=== PATIENT | female | born 1990 | race American Indian/Alaskan Native ===

== ENCOUNTER 2019-05-02 08:38 | Outpatient (CLI) | payer MEDICAID ==
[2019-05-02] MEDS ORDERED: LACTATED RINGERS 1,000 ML ONE (09:07)
[2019-05-02] MEDS ORDERED: LACTATED RINGERS 1,000 ML IV SCH (10:00)
[2019-05-02 10:24] LABS: Bacteria,Urine 3+ /HPF (Negative); Bilirubin,Urine NEG (Negative); Blood,Urine NEG (Negative); Color,Urine Yellow (Yellow); Mucus,Urine FEW /HPF; Urobilinogen,Urine < 2.0 mg/dL (<2.0)
[2019-05-02] MEDS ORDERED: ROCEPHIN/NS 1 GM/50 ML 1 GM/50 ML BAG IV ONE (10:50)
[2019-05-02 10:51] VITALS: BP 122/73
== END 2019-05-02 12:08 | disposition home or self-care (01) ==
LOC: TRG 08:38
PROVIDERS: ATTEND Obstetrics & Gynecology
DX: O26.893 Other specified pregnancy related conditions, third trimester (principal); R10.9 Unspecified abdominal pain; Z3A.36 36 weeks gestation of pregnancy
CPT/HCPCS: 81001; 96361; 96365; J0696; J7120; 96360

== ENCOUNTER 2019-05-20 20:34 | Inpatient (IN) | payer MEDICAID ==
[2019-05-20] MEDS ORDERED: MINERAL OIL PO PRN (23:13)
[2019-05-20] MEDS ORDERED: BRETHINE SUB-Q PRN (23:13)
[2019-05-20] MEDS ORDERED: XYLOCAINE 2% INFILTRATI ONE (23:13)
[2019-05-20] MEDS ORDERED: SUBLIMAZE IV PRN (23:13)
[2019-05-20] MEDS ORDERED: BRETHINE IVP PRN (23:13)
[2019-05-20] MEDS ORDERED: LACTATED RINGERS 1,000 ML IV SCH (23:45)
[2019-05-20] MEDS ORDERED: PITOCin/NS 20 UNIT/1000ML DRIP 20 UNITS/1,000 ML BAG IV SCH (23:45)
[2019-05-20] MEDS ORDERED: PITOCin/NS 30 UNIT/500ML 30 UNITS/500 ML BAG IV SCH (23:45)
[2019-05-20 23:46] LABS: Basophils # (Auto) 0.1 K/mm3 (0.0-0.1); Basophils % (Auto) 0.7 % (0.0-1.8); Eosinophils % (Auto) 0.5 % (0.0-4.3); Hematocrit 35.6 % (30.3-42.9); Hemoglobin 11.3 gm/dl (10.1-14.3); Lymphocytes # (Auto) 1.6 K/mm3 (1.2-5.4); Lymphocytes % (Auto) 18.5 % (13.4-35.0); Mean Corpuscular HGB Conc 32 % (30-34); Mean Corpuscular Volume 85 fl (79-97); Monocytes # (Auto) 0.7 K/mm3 (0.0-0.8); Monocytes % (Auto) 8.2 % (0.0-7.3); Platelet Count 264 K/mm3 (140-440); Red Blood Count 4.21 M/mm3 (3.65-5.03); Red Cell Distribution Width 16.2 % (13.2-15.2)
--- NOTE | 2019-05-21 09:06 | History and Physical Report ---
History of Present Illness Date of examination: 05/21/19 Date of admission: 05/20/19 20:34 Chief complaint: Here for induction History of present illness: The patient is a 29 yo at 39.1 weeks EGA who presents for induction for morbid obesity. She reports positive movement and occasional contractions. No LOF or bleeding. She has received care with [facility]. Her has been complicated by obesity and UTI, cured. She is GBS negative. Past History Past Medical History: hematologic disorders (silent carrier alpha thalassemia) Past Surgical History: no surgical history [employer]ERTY CONSULTANT History: abnormal PAP smear (ASCUS HPV neg 11/13/18) Family/Genetic History: none Social history: - Obstetrical History Expected Date of Delivery: 05/27/19 Actual Gestation: 39 Week(s) 1 Day(s) : 3 Para: 2 Hx # Term Pregnancies: 2 Number of Pregnancies: 0 Spontaneous Abortions: 0 Induced : 0 Number of Living Children: 2 Medications and Allergies Allergies Allergy/AdvReac Type Severity Reaction Status Date / Time No Known Allergies Allergy Unverified 05/02/19 09:05 Active Meds: Active Medications Ephedrine Sulfate (Ephedrine Sulfate) 10 mg IV Q2M PRN PRN Reason: Hypotension Fentanyl (Sublimaze) 100 mcg IV Q2H PRN PRN Reason: Labor Pain Oxytocin/Sodium Chloride (Pitocin/Ns 20 Unit/1000ml Drip) 20 units in 1,000 mls @ 125 mls/hr IV DIRECT MASOUD Oxytocin/Sodium Chloride (Pitocin/Ns 30 Unit/500ml) 30 units in 500 mls @ 2 mls/hr IV TITR MASOUD; Protocol Last Titration: 05/21/19 07:45 Dose: 10 ml/hr, 10 mls/hr Documented by: Lactated Ringer's (Lactated Ringers) 1,000 mls @ 125 mls/hr IV DIRECT MASOUD Last Admin: 05/21/19 07:30 Dose: 125 mls/hr Documented by: Mineral Oil (Mineral Oil) 30 ml PO QHS PRN PRN Reason: Constipation Terbutaline Sulfate (Brethine) 0.25 mg SUB-Q ONCE PRN PRN Reason: Hyperstimulation/Hypertonicity Terbutaline Sulfate (Brethine) 0.25 mg IVP ONCE PRN PRN Reason: Hyperstimulation/Hypertonicity Review of Systems Cardiovascular: no chest pain Respiratory: no shortness of breath Genitourinary: contractions - Vital Signs Vital signs: Vital Signs Pulse Pulse Ox 104 H 97 05/20/19 21:23 05/20/19 21:23 Temp Pulse Resp BP Pulse Ox 98.9 F 93 H 16 108/69 98 05/21/19 07:30 05/21/19 08:42 05/21/19 07:30 05/21/19 08:42 05/21/19 07:30 - Physical Exam Breasts: Positive: deferred Lungs: Positive: Normal air movement Abdomen: Positive: normal appearance (gravid), soft Genitourinary (Female): Positive: normal external genitalia Vagina: Positive: normal moisture Uterus: Positive: enlarged, normal contour Extremities: Positive: normal - Obstetrical FHR: category 1 Uterine Contraction Monitor Mode: External Cervical Dilatation: 3 Cervical Effacement Percentage: 40 station: -3 Uterine Contraction Pattern: Irregular Results Result Diagrams: 05/20/19 22:30 Abnormal lab results 05/20/19 Range/Units 22:30 MCH 27 L (28-32) pg RDW 16.2 H (13.2-15.2) % Jennings % (Auto) 8.2 H (0.0-7.3) % Seg Neutrophils % 72.1 H (40.0-70.0) % All other labs normal. Assessment and Plan A: 29 yo at 39.1 weeks EGA s/p low dose pitocin overnight Morbid obesity Hx UTI, treated and cured GBS negative Silent carrier alpha-thalassemia, no FOB testing P: Induction of labor for obesity AROM meconium-stained fluid at 0750 Pitocin Pain relief as requested Anticipate
[2019-05-21] MEDS ORDERED: SUBLIMAZE IV ONE (11:53)
[2019-05-21] MEDS ORDERED: XYLOCAINE 1%/ EPI 1:100,000 INFILTRATI NR (12:00)
[2019-05-21] MEDS ORDERED: ZOFRAN IV PRN (12:39)
[2019-05-21] MEDS ORDERED: TUCKS PAD TP PRN (12:39)
[2019-05-21] MEDS ORDERED: PHENERGAN PO PRN (12:39)
[2019-05-21] MEDS ORDERED: LANSINOH TP PRN (12:39)
[2019-05-21] MEDS ORDERED: MILK OF MAGNESIA PO PRN (12:39)
[2019-05-21] MEDS ORDERED: BENADRYL PO PRN (12:39)
[2019-05-21] MEDS ORDERED: DULCOLAX PR PRN (12:39)
[2019-05-21] MEDS ORDERED: PERCOCET 5/325 PO PRN (12:39)
[2019-05-21] MEDS ORDERED: TYLENOL PO PRN (12:39)
[2019-05-21] MEDS ORDERED: PHENERGAN PR PRN (12:39)
--- NOTE | 2019-05-21 12:48 | Procedure Note ---
OB Delivery Note - Delivery Date of Delivery: 05/21/19 Surgeon: CHINA HOUSER (CN) Estimated blood loss: other (400cc) - Vaginal Delivery presentation: vertex Delivery position: OA Intrapartum events: PROM->1hr before delivery (AROM) Delivery induction: oxytocin Delivery augmentation: rupture of membranes Delivery monitor: external FHT, external uterine Route of delivery: Indicators for instrumentation: nonreassuring FHR tracing Delivery placenta: spontaneous Delivery cord: 3 umbilical vessels Episiotomy: none Delivery laceration: none Anesthesia: intravenous Delivery comments: Excellent maternal effort resulted in of vigorous female infant. Apgars 8/9. Infant to maternal abdomen. Placenta delivered spontaneously and intact. Pitocin infusing. Cord clamped and cut. Bulb suction on abdomen. No lacerations noted. EBL 400cc. - A at 1 minute: 8 at 5 minutes: 9 Gender: Female
[2019-05-21] MEDS ORDERED: SODIUM CHLORIDE FLUSH SYRINGE 10 ML IV SCH (13:00)
[2019-05-21] MEDS ORDERED: IBUPROFEN PO SCH (14:00)
[2019-05-21] MEDS: IBUPROFEN PO PRN (16:08)
[2019-05-21] MEDS ORDERED: FEOSOL PO SCH (22:00)
[2019-05-22 01:01] LABS: Hematocrit 31.4 % (30.3-42.9); Hemoglobin 10.4 gm/dl (10.1-14.3)
[2019-05-22] MEDS: IBUPROFEN PO PRN ×2 (05:48→11:30)
--- NOTE | 2019-05-22 08:23 | Progress Note ---
Assessment and Plan A/P PPD1 rh + hgb 11.3-10.4 routien PP care Discharge home tomorrow Subjective - Subjective Date of service: 05/22/19 Principal diagnosis: s/p Patient reports: appetite normal, voiding normally, pain well controlled, flatus, ambulating normally [place]: doing well Objective - Vital Signs Latest vital signs: Vital Signs Temp Pulse Resp BP Pulse Ox 05/22/19 05:48 18 05/22/19 01:19 98.3 F 102 H 20 99/50 95 05/21/19 21:34 97.9 F 94 H 20 120/69 97 05/21/19 14:30 89 107/64 98 05/21/19 14:00 98.4 F 78 18 112/65 05/21/19 13:45 81 110/66 05/21/19 13:30 91 H 100/57 05/21/19 13:15 82 106/59 05/21/19 13:00 98.2 F 83 18 109/64 05/21/19 12:45 85 107/55 05/21/19 12:30 98.1 F 93 H 20 109/54 05/21/19 12:13 94 H 112/77 05/21/19 12:00 98.2 F 18 05/21/19 11:42 78 119/65 05/21/19 11:13 95 H 113/69 05/21/19 10:43 93 H 111/60 05/21/19 10:12 90 112/61 05/21/19 09:44 93 H 112/62 05/21/19 09:13 88 114/71 05/21/19 08:42 93 H 108/69 - Exam Breasts: Present: normal Cardiovascular: Present: Regular rate, Normal S1 Lungs: Present: Clear to auscultation, Normal air movement Abdomen: Present: normal appearance, soft, normal bowel sounds. Absent: distention, tenderness, guarding Vulva: both: normal Uterus: Present: normal, firm, fundal height below umbilicus. Absent: bogginess, tenderness Extremities: Present: normal Deep Tendon Reflex Grade: Normal +2
--- NOTE | 2019-05-22 08:24 | Discharge Summary ---
Providers - Providers Date of Admission: 05/20/19 20:34 Date of discharge: 05/23/19 Attending physician: ROGERIO FLORES Primary care physician: ROGERIO FLORES Hospitalization Reason for admission: induction of labor Delivery: Episiotomy: none Laceration: none Incision: normal Other procedures: none complications: none Discharge diagnosis: IUP at term delivered baby: female Hospital course: patient had . f/u in 4 weeks Condition at discharge: Good Disposition: DC-01 TO HOME OR SELFCARE Plan - Discharge Medications Prescriptions: Ferrous Sulfate [Ferrous Sulfate 324 MG] 324 mg PO BID #60 tablet. Ibuprofen [Motrin] 600 mg PO Q6H PRN #60 tablet PRN Reason: Pain - Provider Discharge Summary Activity: routine, no sex for 6 weeks, no strenuous exercise Diet: routine Instructions: routine Additional instructions: [] Smoking cessation referral if applicable(refer to patient education folder for contact #) [] Refer to [facility] Booklet Call your doctor immediately for: * Fever > 100.5 * Heavy vaginal bleeding ( >1 pad per hour) * Severe persistent headache * Shortness of breath * Reddened, hot, painful area to leg or breast * Drainage or odor from incision. * Keep incision clean and dry at all times and follow doctor's instructions regarding bathing/showering - Follow up plan Follow up: ROGERIO FLORES MD [Primary Care Provider] - 06/18/19
[2019-05-22 09:13] VITALS: BP 114/67
[2019-05-22] MEDS ORDERED: BOOSTRIX IM ONE (12:39)
== END 2019-05-22 15:45 | disposition home or self-care (01) | DRG 775 ==
LOC: LD 20:34 → OB 05-21 14:36
PROVIDERS: ADMIT Obstetrics & Gynecology; ATTEND Obstetrics & Gynecology
PROC: 10E0XZZ Delivery of Products of Conception, External Approach (ICD-10-PCS; principal; 2019-05-21)
PROC: 10907ZC Drainage of Amniotic Fluid, Therapeutic from Products of Conception, Via Natural or Artificial Opening (ICD-10-PCS; 2019-05-21)
PROC: 3E033VJ Introduction of Other Hormone into Peripheral Vein, Percutaneous Approach (ICD-10-PCS; 2019-05-21)
PROC: 3E0234Z Introduction of Serum, Toxoid and Vaccine into Muscle, Percutaneous Approach (ICD-10-PCS; 2019-05-22)
DX: O99.214 Obesity complicating childbirth (principal); O42.92 Full-term premature rupture of membranes, unspecified as to length of time between rupture and onset of labor; O76 Abnormality in fetal heart rate and rhythm complicating labor and delivery; E66.01 Morbid (severe) obesity due to excess calories; D56.3 Thalassemia minor; O99.12 Other diseases of the blood and blood-forming organs and certain disorders involving the immune mechanism complicating childbirth; Z3A.39 39 weeks gestation of pregnancy; Z37.0 Single live birth; Z23 Encounter for immunization
CPT/HCPCS: 36415; 85014; 85018; 85025; 86850; 86900; 86901; G0378; J2590; J3010; J7120; Q0169